=== PATIENT | female | born 2000 | race Caucasian/White ===

== ENCOUNTER 2019-10-27 00:35 | Emergency (ER) | payer MEDICAID, OTHER ==
[2019-10-27] MEDS ORDERED: Lactated Ringers 1,000 ML IV SCH (00:45)
[2019-10-27] MEDS ORDERED: Sodium Chloride 0.9% 10 ML Syringe FLUSH PRN (00:45)
[2019-10-27] MEDS ORDERED: Iopamidol 612 MG/ML 100 ML Bottle IVPUSH ONE (00:52)
[2019-10-27] MEDS ORDERED: LORazepam 2 MG/ML SDV IVPUSH ONE (00:59)
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
[2019-10-27] MEDS ORDERED: Ketamine 500 mg/10 ML MDV IV ONE (01:03)
[2019-10-27] MEDS ORDERED: Lidocaine 1% 10 ML MDV INJECT ONE (03:21)
--- NOTE | 2019-10-27 09:38 | CT ---
CT chest Technique: Multiple axial sections through the chest were obtained. Intravenous contrast was utilized. Comparison: No prior chest imaging is available. Findings: Mediastinum and hilar regions appear unremarkable. No pericardial thickening is seen. No axillary adenopathy is identified. Lungs are clear. No acute parenchymal change is seen. No pulmonary contusion is identified. Bone window settings were reviewed. No acute osseous finding is appreciated. Impression: 1. Nothing acute is appreciated on CT study of the chest. Diagnostic code #1 This report was dictated in [facility] Time I agree with preliminary report from [facility], finalized on 10/27/19, 3:[address] abdomen and pelvis Technique: Multiple axial sections were obtained from above the dome of the diaphragm inferiorly through the pubic symphysis. Intravenous contrast was utilized. No oral contrast has been given. Comparison: No prior abdominal imaging. Findings: Liver contains no focal parenchymal abnormality. Spleen appears within normal limits. Adrenal glands show no nodule. Kidneys show symmetric contrast enhancement and appear within normal limits. Gallbladder contains no calcified gallstones. Pancreas shows no discrete abnormality. Aorta shows no aneurysm. No retroperitoneal adenopathy or mesenteric abnormalities are seen. Appendix is felt to be visualized and is normal in size. No pelvic mass or adenopathy is appreciated. Delayed images shows contrast within the distal ureters as well as contrast being seen within the bladder. No free fluid or inflammatory change is appreciated. Bone window settings were reviewed which shows no acute osseous finding. Impression: 1. Nothing acute is identified on CT study of the abdomen and pelvis. Diagnostic code #1 This report was dictated in [facility] Time I agree with preliminary report from [facility], finalized on 10/27/19, 4:04 AM Central Time
--- NOTE | 2019-10-27 09:38 | CT ---
CT cervical spine Technique: Multiple axial sections were obtained from above C1 inferiorly to the top of T3. Reconstructed sagittal and coronal images were reviewed. Comparison: No prior cervical spine imaging is available. Findings: Vertebral body heights and disc spaces are maintained. Vertebral bodies and posterior arches are intact. No fracture or subluxation is seen. No bony central or bony neural foraminal stenosis is seen. Impression: 1. Nothing acute is appreciated on CT study of the cervical spine. Diagnostic code #1 This report was dictated in [facility] Time I agree with preliminary report from [facility], finalized on 10/27/19, 3:57 AM Central Time
--- NOTE | 2019-10-27 09:38 | CT ---
Head CT Technique: Multiple axial sections through the brain were obtained. Intravenous contrast was not utilized. Comparison: No prior intracranial imaging is available. Findings: Ventricles along with basal cisterns and sulci over the convexities are within normal limits for the patient's age. No abnormal parenchymal densities are seen. No evidence of intracranial hemorrhage. No midline shift or mass-effect is seen. Visualized paranasal sinuses show nothing acute. No acute calvarial abnormality is appreciated. Impression: 1. Nothing acute is appreciated on noncontrast head CT exam. Diagnostic code #1 This report was dictated in [facility] Time I agree with preliminary report from [facility], finalized on 10/27/19, 3:48 AM Central Time
== END 2019-10-27 03:33 | disposition home or self-care (01) ==
LOC: JD.ED 00:35
DX: S01.01XA Laceration without foreign body of scalp, initial encounter (principal); S61.411A Laceration without foreign body of right hand, initial encounter; S61.412A Laceration without foreign body of left hand, initial encounter; S91.011A Laceration without foreign body, right ankle, initial encounter; S61.211A Laceration without foreign body of left index finger without damage to nail, initial encounter; S40.211A Abrasion of right shoulder, initial encounter; S80.812A Abrasion, left lower leg, initial encounter; S80.811A Abrasion, right lower leg, initial encounter; F10.920 Alcohol use, unspecified with intoxication, uncomplicated; Y90.6 Blood alcohol level of 120-199 mg/100 ml; V48.5XXA Car driver injured in noncollision transport accident in traffic accident, initial encounter; Y92.410 Unspecified street and highway as the place of occurrence of the external cause
CPT/HCPCS: 36415; 70450; 71260; 72125; 74177; 80053; 80307; 83690; 84703; 85025; 99285; Q9967; 99284